=== PATIENT | female | born 1950 | race Caucasian/White ===

== ENCOUNTER 2019-04-12 09:46 | Day surgery (SDC) | payer MEDICARE, BC ==
[2019-04-12] MEDS ORDERED: BENA1TAB19 PO (10:50)
[2019-04-12 10:53] VITALS: BP 97/56
[2019-04-12] MEDS ORDERED: IOPAMIDOL 10 ML VIAL IT ONE (11:10)
[2019-04-12 12:05] VITALS: BP 120/68
[2019-04-12] MEDS ORDERED: ondansetron/PF 4mg/2ml inj ONE (12:10)
== END 2019-04-12 13:30 | disposition home or self-care (01) ==
LOC: SSTAY O 09:46
PROVIDERS: ATTEND Physician Assistant
DX: M48.061 Spinal stenosis, lumbar region without neurogenic claudication (principal); M71.38 Other bursal cyst, other site
CPT/HCPCS: 62304; 72132; J2405; Q9966; 62284; 77003

== ENCOUNTER 2020-04-02 20:09 | Inpatient (IN) | payer MEDICARE, BC ==
[~2020-04-02] VITALS: Ht 160 cm; Wt 50.7 kg
[~2020-04-02 20:09] MED LIST: BENA1TAB19 PO
[2020-04-02 20:43] LABS: BASOPHILS # (AUTO) 0.1 X10'3 (0-0.2); BASOPHILS % (AUTO) 0.8 % (0-1); EOSINOPHILS # (AUTO) 0.1 X10'3 (0-0.9); EOSINOPHILS % (AUTO) 1.1 % (0-6); HEMATOCRIT 31.6 % (35.0-45.0); HEMOGLOBIN 10.9 g/dl (12.0-16.0); MEAN CORPUSCULAR HEMOGLOBIN 36.5 PG (27.0-31.0); MEAN CORPUSCULAR HGB CONC 34.5 g/dL (33.0-36.5); MEAN PLATELET VOLUME 7.5 FL (7.4-10.4); MONOCYTES % (AUTO) 7.7 % (2-12); NEUTROPHILS # (AUTO) 7.7 X10'3 (1.8-7.7); NEUTROPHILS % (AUTO) 59.4 % (42-75); PLATELET COUNT 527 X10'3 (140-440); RED BLOOD COUNT 2.98 X10'6 (4.20-5.60); RED CELL DISTRIBUTION WIDTH 15.4 % (11.5-14.5)
[2020-04-02] MEDS ORDERED: normal saline 1000ML IV soln IVB ONE ×3 (20:50→21:35)
[2020-04-02 21:11] LABS: ALANINE AMINOTRANSFERASE 17 U/L (12-78); ALBUMIN 3.1 G/DL (3.4-5.0); ALBUMIN/GLOBULIN RATIO 0.7 (1.1-1.5); ALKALINE PHOSPHATASE 77 IU/L (46-116); ANION GAP 16 (8-16); ASPARTATE AMINO TRANSFERASE 17 U/L (10-37); BILIRUBIN,TOTAL 0.2 MG/DL (0.1-1.0); BLOOD UREA NITROGEN 51 MG/DL (7-18); CHLORIDE 104 MMOL/L (99-107); GLUCOSE 110 MG/DL (70-104); SODIUM 137 MMOL/L (135-145); TOTAL CARBON DIOXIDE 16.6 MMOL/L (24-32); TOTAL PROTEIN 7.4 G/DL (6.4-8.2)
[2020-04-02 21:25] LABS: BUN/CREATININE RATIO 16.3 (6.6-38.0); CALCIUM 9.6 MG/DL (8.5-10.1); CREATININE 3.13 MG/DL (0.40-0.90); LIPASE 1500 U/L (73-393); eGFR 15 ML/MIN
[2020-04-02] MEDS ORDERED: ondansetron/PF 4mg/2ml inj IV ONE (21:25)
[2020-04-02 21:30] LABS: POTASSIUM 2.1 MMOL/L (3.5-5.1)
[2020-04-02 21:30] LABS: CLARITY,URINE CLEAR (Clear); COLOR,URINE YELLOW (Yellow); GLUCOSE, URINE NEGATIVE (Neg); KETONES,URINE NEGATIVE (Neg); LEUKOCYTE ESTERASE ,URINE TRACE (Neg); NITRITES, URINE NEGATIVE (Neg); OCCULT BLOOD,URINE NEGATIVE (Neg); PROTEIN,URINE NEGATIVE (Neg); UROBILINOGEN,URINE 0.2 E.U/dL (0.2-1.0)
[2020-04-02 21:32] LABS: UA COLLECTION TYPE CLN CATCH MIDSTREAM
[2020-04-02 21:36] LABS: SQUAMOUS EPITHELIAL CELL,UR FEW /LPF (FEW)
[2020-04-02 21:37] LABS: BACTERIA,URINE 1+ /HPF (Neg); RBC,URINE NONE SEEN /HPF (0-2); RENAL CELLS, URINE FEW /HPF
[2020-04-02] MEDS: potassium CL 10mEq/100ml bag 100 ML IV SCH ×2 (21:39→23:55)
--- NOTE | 2020-04-02 21:49 | NUR ---
PATIENT REPORTS DRINKING 4-5 GLASSES OF WINE A DAY FOR "30 YEARS" REPORTED LAST DRINK WAS 10 DAYS AGO.
[2020-04-02] MEDS ORDERED: CefTRIAXone/D5W-Rocephin 1gm 50 ML IV ONE (22:00)
[2020-04-02] MEDS ORDERED: morphine 2 MG/ML inj. syringe IV PRN ×2 (22:45)
[2020-04-02] MEDS ORDERED: potassium Cl 20 mEq SR tablet PO PRN ×2 (22:45)
[2020-04-02] MEDS ORDERED: potassium CL 10mEq/100ml bag 100 ML IV PRN (22:45)
[2020-04-02] MEDS ORDERED: ondansetron/PF 4mg/2ml inj IV PRN (22:45)
[2020-04-02] MEDS ORDERED: magnesium hydroxide 30ml (MOM) UD suspension PO PRN (22:45)
[2020-04-02] MEDS ORDERED: acetaminophen 325mg tablet PO PRN (22:45)
[2020-04-02] MEDS ORDERED: mag hydrox/Alum hydrox/simeth 30ml oral suspension PO PRN (22:45)
[2020-04-02] MEDS ORDERED: LORazepam 1 MG tablet PO PRN (22:50)
[2020-04-02] MEDS ORDERED: LORazepam 2 mg/ml vial IV PRN (22:50)
[2020-04-02] MEDS: potassium Cl 20mEq in NS 1,000 ML IV SCH (23:55)
[2020-04-03] MEDS: potassium CL 10mEq/100ml bag 100 ML IV PRN ×6 (04:36→17:34)
--- NOTE | 2020-04-03 06:30 | NUR ---
received on bed awake.denies discomfort at this time,call light within reach.
--- NOTE | 2020-04-03 07:21 | NUR ---
pharmaceutical laboratory technician at bedside.
[2020-04-03 07:55] LABS: BASOPHILS # (AUTO) 0.1 X10'3 (0-0.2); BASOPHILS % (AUTO) 0.8 % (0-1); EOSINOPHILS # (AUTO) 0.1 X10'3 (0-0.9); EOSINOPHILS % (AUTO) 1.1 % (0-6); HEMATOCRIT 27.6 % (35.0-45.0); HEMOGLOBIN 9.5 g/dl (12.0-16.0); LYMPHOCYTES # (AUTO) 3.1 X10'3 (1.1-4.8); LYMPHOCYTES % (AUTO) 26.9 % (21-51); MEAN CORPUSCULAR HEMOGLOBIN 36.7 PG (27.0-31.0); MEAN CORPUSCULAR HGB CONC 34.4 g/dL (33.0-36.5); MEAN CORPUSCULAR VOLUME 106.9 FL (78-98); MEAN PLATELET VOLUME 7.8 FL (7.4-10.4); MONOCYTES # (AUTO) 0.8 X10'3 (0-0.9); MONOCYTES % (AUTO) 6.7 % (2-12); NEUTROPHILS # (AUTO) 7.3 X10'3 (1.8-7.7); NEUTROPHILS % (AUTO) 64.5 % (42-75); PLATELET COUNT 458 X10'3 (140-440); RED BLOOD COUNT 2.58 X10'6 (4.20-5.60); RED CELL DISTRIBUTION WIDTH 15.5 % (11.5-14.5); WHITE BLOOD COUNT 11.4 X10'3 (4.5-11.0)
[2020-04-03] MEDS ORDERED: thiamine inj. 100 MG in normal saline 100ml IV soln 100 ML IV ONE (08:00)
[2020-04-03] MEDS: K and/or MAG REPLACEMENT MC SCH ×2 (08:01→19:38)
[2020-04-03 08:15] LABS: ALANINE AMINOTRANSFERASE 12 U/L (12-78); ALBUMIN 2.3 G/DL (3.4-5.0); ALBUMIN/GLOBULIN RATIO 0.6 (1.1-1.5); ALKALINE PHOSPHATASE 59 IU/L (46-116); ANION GAP 14 (8-16); ASPARTATE AMINO TRANSFERASE 14 U/L (10-37); BILIRUBIN,TOTAL 0.2 MG/DL (0.1-1.0); BLOOD UREA NITROGEN 42 MG/DL (7-18); BUN/CREATININE RATIO 18.3 (6.6-38.0); CALCIUM 8.7 MG/DL (8.5-10.1); CHLORIDE 113 MMOL/L (99-107); GLUCOSE 91 MG/DL (70-104); LIPASE 1161 U/L (73-393); SODIUM 142 MMOL/L (135-145); TOTAL PROTEIN 5.9 G/DL (6.4-8.2); eGFR 21 ML/MIN
[2020-04-03 08:27] LABS: POTASSIUM 2.9 MMOL/L (3.5-5.1)
[2020-04-03 08:28] LABS: TOTAL CARBON DIOXIDE 14.6 MMOL/L (24-32)
--- NOTE | 2020-04-03 08:41 | NUR ---
PT'S DAUGHTER CARLENE: [phone]
[2020-04-03] MEDS: potassium Cl 20mEq in NS 1,000 ML IV SCH ×2 (08:45→16:12)
--- NOTE | 2020-04-03 09:11 | NUR ---
thiamine iv and bicarb not available at this time.
[2020-04-03] MEDS: sodium bicarbonate (8.4%) inj. 150 MEQ in dextrose 5%-water 1,000 ML IV SCH ×3 (10:48→22:14)
--- NOTE | 2020-04-03 15:05 | NUR ---
Arrived to room 3016 B at this time.
[2020-04-03 15:30] VITALS: BP 108/43
--- NOTE | 2020-04-03 15:54 | NUR ---
Patient refused skin check, states has no skin issues.
--- NOTE | 2020-04-03 16:05 | NUR ---
Paged hosp, "tunde [phone] [phone] Rachel Gregorio with dx pancreatitis. Diet order clarification?" Will cont. to monitor.
--- NOTE | 2020-04-03 17:38 | NUR ---
Paged hosp, "Marixa [phone]- 2nd page, please call satish re: [phone] Rachel Robles" okay'd clear liquid diet.
--- NOTE | 2020-04-03 17:48 | NUR ---
Paged hosp, "Marixa [id number] Rachel Robles I was told she was to be limited code- no intub? She's still DNR." Awaiting order change.
[2020-04-03 18:00] VITALS: BP 110/44
--- NOTE | 2020-04-03 18:48 | NUR ---
Gave report to Prudence RN, transferred care.
[2020-04-03 22:00] VITALS: BP 100/42
[2020-04-04] MEDS: potassium Cl 20mEq in NS 1,000 ML IV SCH ×3 (00:50→23:42)
[2020-04-04 02:00] VITALS: BP 90/42
[2020-04-04 06:00] VITALS: BP 100/48
[2020-04-04 06:31] LABS: BASOPHILS # (AUTO) 0.1 X10'3 (0-0.2); BASOPHILS % (AUTO) 0.8 % (0-1); EOSINOPHILS # (AUTO) 0.1 X10'3 (0-0.9); EOSINOPHILS % (AUTO) 1.5 % (0-6); HEMATOCRIT 25.6 % (35.0-45.0); HEMOGLOBIN 8.9 g/dl (12.0-16.0); LYMPHOCYTES # (AUTO) 3.3 X10'3 (1.1-4.8); LYMPHOCYTES % (AUTO) 35.7 % (21-51); MEAN CORPUSCULAR HEMOGLOBIN 37.1 PG (27.0-31.0); MEAN CORPUSCULAR HGB CONC 34.9 g/dL (33.0-36.5); MEAN CORPUSCULAR VOLUME 106.2 FL (78-98); MEAN PLATELET VOLUME 7.5 FL (7.4-10.4); MONOCYTES # (AUTO) 0.7 X10'3 (0-0.9); NEUTROPHILS # (AUTO) 4.9 X10'3 (1.8-7.7); PLATELET COUNT 458 X10'3 (140-440); RED BLOOD COUNT 2.41 X10'6 (4.20-5.60); RED CELL DISTRIBUTION WIDTH 15.5 % (11.5-14.5); WHITE BLOOD COUNT 9.2 X10'3 (4.5-11.0)
[2020-04-04 06:46] LABS: ALANINE AMINOTRANSFERASE 11 U/L (12-78); ALBUMIN 2.1 G/DL (3.4-5.0); ALBUMIN/GLOBULIN RATIO 0.6 (1.1-1.5); ALKALINE PHOSPHATASE 52 IU/L (46-116); ANION GAP 11 (8-16); ASPARTATE AMINO TRANSFERASE 15 U/L (10-37); BILIRUBIN,TOTAL 0.3 MG/DL (0.1-1.0); BLOOD UREA NITROGEN 25 MG/DL (7-18); BUN/CREATININE RATIO 18.9 (6.6-38.0); CALCIUM 7.9 MG/DL (8.5-10.1); CHLORIDE 114 MMOL/L (99-107); CREATININE 1.32 MG/DL (0.40-0.90); GLUCOSE 100 MG/DL (70-104); LIPASE 873 U/L (73-393); POTASSIUM 3.5 MMOL/L (3.5-5.1); SODIUM 144 MMOL/L (135-145); TOTAL CARBON DIOXIDE 19.5 MMOL/L (24-32); TOTAL PROTEIN 5.4 G/DL (6.4-8.2); eGFR 40 ML/MIN
--- NOTE | 2020-04-04 06:59 | NUR ---
Patient in room PCU 3020. I have received report from KENNETH Hamilton and had the opportunity to ask questions and assume patient care.
[2020-04-04] MEDS: K and/or MAG REPLACEMENT MC SCH ×2 (08:00→20:00)
[2020-04-04] MEDS ORDERED: pneumococcal 23-VAL P-sac vacc 25 mcg/0.5ml vial IMVAC ONE (10:00)
[2020-04-04 11:00] VITALS: BP 92/41
[2020-04-04] MEDS: sodium bicarbonate (8.4%) inj. 150 MEQ in dextrose 5%-water 1,000 ML IV SCH (11:45)
[2020-04-04 15:00] VITALS: BP 95/50
--- NOTE | 2020-04-04 15:20 | NUR ---
PAGER ID: [phone] MESSAGE: Leanna PHAM [phone]. Pt Margaret. Rm: [phone]. Pt has 24h Tele order due at 1540. Has been NSR most of the shift with some PVCs. Do you want pt to continue on Tele?
[2020-04-04 18:00] VITALS: BP 92/42
[2020-04-04 22:00] VITALS: BP 101/52
[2020-04-05 02:00] VITALS: BP 98/54
[2020-04-05 06:00] VITALS: BP_SYST 127; BP_SYST 147; BP_DIAS 62
--- NOTE | 2020-04-05 06:13 | NUR ---
Patient in room PCU 3020. I have received report from KENNETH Medeiros and had the opportunity to ask questions and assume patient care.
[2020-04-05] MEDS: sodium bicarbonate (8.4%) inj. 150 MEQ in dextrose 5%-water 1,000 ML IV SCH (06:55)
[2020-04-05 07:01] LABS: BASOPHILS # (AUTO) 0.1 X10'3 (0-0.2); BASOPHILS % (AUTO) 1.1 % (0-1); EOSINOPHILS # (AUTO) 0.2 X10'3 (0-0.9); HEMATOCRIT 26.9 % (35.0-45.0); HEMOGLOBIN 9.4 g/dl (12.0-16.0); LYMPHOCYTES # (AUTO) 3.1 X10'3 (1.1-4.8); LYMPHOCYTES % (AUTO) 34.8 % (21-51); MEAN CORPUSCULAR HEMOGLOBIN 37.7 PG (27.0-31.0); MEAN CORPUSCULAR HGB CONC 34.9 g/dL (33.0-36.5); MEAN CORPUSCULAR VOLUME 108.1 FL (78-98); MEAN PLATELET VOLUME 7.5 FL (7.4-10.4); MONOCYTES # (AUTO) 0.9 X10'3 (0-0.9); NEUTROPHILS # (AUTO) 4.7 X10'3 (1.8-7.7); NEUTROPHILS % (AUTO) 52.1 % (42-75); PLATELET COUNT 450 X10'3 (140-440); RED BLOOD COUNT 2.49 X10'6 (4.20-5.60)
[2020-04-05 07:18] LABS: ALANINE AMINOTRANSFERASE 14 U/L (12-78); ALBUMIN 2.1 G/DL (3.4-5.0); ALBUMIN/GLOBULIN RATIO 0.6 (1.1-1.5); ALKALINE PHOSPHATASE 52 IU/L (46-116); ANION GAP 8 (8-16); ASPARTATE AMINO TRANSFERASE 15 U/L (10-37); BILIRUBIN,TOTAL 0.2 MG/DL (0.1-1.0); BLOOD UREA NITROGEN 16 MG/DL (7-18); BUN/CREATININE RATIO 15.4 (6.6-38.0); CALCIUM 7.7 MG/DL (8.5-10.1); CHLORIDE 115 MMOL/L (99-107); CREATININE 1.04 MG/DL (0.40-0.90); GLUCOSE 95 MG/DL (70-104); LIPASE 896 U/L (73-393); POTASSIUM 3.9 MMOL/L (3.5-5.1); SODIUM 147 MMOL/L (135-145); TOTAL CARBON DIOXIDE 23.7 MMOL/L (24-32); TOTAL PROTEIN 5.5 G/DL (6.4-8.2); eGFR 52 ML/MIN
[2020-04-05 07:46] LABS: C DIFF ANTIGEN NEGATIVE (NEGATIVE); C DIFF SPECIMEN=DIARRHEA? ACCEPTABLE; C DIFFICILE TOXINS A&B NEGATIVE (Neg)
[2020-04-05] MEDS: K and/or MAG REPLACEMENT MC SCH (08:00)
[2020-04-05] MEDS: potassium Cl 20mEq in NS 1,000 ML IV SCH (08:48)
--- NOTE | 2020-04-05 10:56 | NUR ---
Patient is refusing to wear tele. Said to Brain when he went to put her tele on that, "I am not wearing this fucking shit."
[2020-04-05 11:00] VITALS: BP 149/65
--- NOTE | 2020-04-05 16:04 | NUR ---
Discharged. PIV out. educated on follow-up and RON. Safe per Dr Leal for DC. Wheeled out by tech to lobby.
== END 2020-04-05 12:35 | disposition home or self-care (01) | DRG 438 ==
LOC: ER 20:10 → ED HOLD 22:43 → PCU 3S 04-03 15:10
PROVIDERS: ADMIT Internal Medicine; ATTEND Family Medicine
DX: K85.90 Acute pancreatitis without necrosis or infection, unspecified (principal); N17.0 Acute kidney failure with tubular necrosis; N30.01 Acute cystitis with hematuria; E87.2 Acidosis; E87.6 Hypokalemia; R19.7 Diarrhea, unspecified; I10 Essential (primary) hypertension; Z87.440 Personal history of urinary (tract) infections; Z87.891 Personal history of nicotine dependence; Z28.21 Immunization not carried out because of patient refusal; Z79.899 Other long term (current) drug therapy
CPT/HCPCS: 36415; 74176; 80053; 81001; 83605; 83690; 83880; 84132; 84145; 85025; 87040; 87081; 87088; 87324; 87449; 93005; 96365; 96375; 99285; G0378; J0696; J2405; J3411; J3480; J7030

== ENCOUNTER 2022-11-04 06:51 | Outpatient (CLI) | payer MEDICARE, BC ==
[~2022-11-04] VITALS: Ht 190.5 cm; Wt 50.3 kg
[2022-11-04] MEDS ORDERED: albuterol 2.5 MG/3 ML nebule NEB PRN (07:30)
== END 2022-11-04 23:59 | disposition home or self-care (01) ==
LOC: RT 06:51
PROVIDERS: ATTEND Internal Medicine
DX: R94.2 Abnormal results of pulmonary function studies (principal); R06.02 Shortness of breath
CPT/HCPCS: 94060; 94727; 94729; 94760